=== PATIENT | female | born 1995 | race Caucasian/White ===

== ENCOUNTER → 2018-09-06 15:56 | Outpatient (CLI) | payer BC, SELFPAY ==
[2018-09-06 16:56] LABS: Alanine Aminotransferase 24 IU/L (9-52); Albumin 4.6 g/dL (3.5-5.0); Albumin Globulin Ratio 1.2 (1.0-2.8); Alkaline Phosphatase 79 U/L (38-126); Aspartate Aminotransferase 21 IU/L (14-36); BUN Creatinine Ratio 14.3 (6-22); Bilirubin Total 0.3 mg/dL (0.2-1.3); Blood Urea Nitrogen 10 mg/dL (7-17); Calcium 9.5 mg/dL (8.4-10.2); Carbon Dioxide 24 mmol/L (22-32); Chloride 102 mmol/L (98-107); Estimated Glomerular Filt Rate > 60.0 mL/min (>60); Globulin 3.9 g/dL (1.7-4.1); Glucose 83 mg/dL (70-100); HEMOLYSIS < 15 (0-50); Lipase 250 U/L (23-300); Potassium 3.9 mmol/L (3.4-5.1); Sodium 138 mmol/L (137-145); Total Protein 8.5 g/dL (6.3-8.2)
[2018-09-06 17:18] LABS: Add Manual Diff / Slide Review NO; Basophils Absolute Auto 0 /uL (0-100); Basophils Percent Auto 0.4 % (0-2); Eosinophils Absolute Auto 300 /uL (0-450); Eosinophils Percent Auto 3.3 % (2-4); Hematocrit 41.6 % (36-46); Hemoglobin 13.9 g/dL (12.0-16.0); Lymphocytes Absolute Auto 3300 /uL (1100-4500); Mean Corpuscular HGB Conc 33.4 % (30-36); Mean Corpuscular Hemoglobin 28.5 PG (26-34); Mean Corpuscular Volume 85.4 fL (80-100); Monocytes Absolute Auto 900 /uL (0-900); Monocytes Percent Auto 8.5 % (3-14); Neutrophils Absolute Auto 6000 /uL (1500-7000); Neutrophils Percent Auto 56.8 % (50-75); Platelet Count 385 X10^3/uL (150-400); Red Blood Cell Count 4.87 X10^6/uL (4.0-5.2); Red Cell Distribution Width 13.6 % (11.6-14.8); White Blood Cell Count 10.5 X10^3/uL (4.5-11.0)
== END ==
PROVIDERS: PCP Family Medicine; Visit Provider Physician Assistant
DX: K92.1 Melena (principal)
CPT/HCPCS: 36415; 80053; 83690; 85025

== ENCOUNTER → 2024-04-29 09:38 | Outpatient (CLI) | payer OTHER, SELFPAY ==
[2024-04-29 15:31] LABS: Urine Chlamydia NOT DETECTED; Urine N gonorrhoeae NOT DETECTED
== END ==
PROVIDERS: PCP Registered Nurse; Visit Provider Student in an Organized Health Care Education/Training Program
DX: Z34.01 Encounter for supervision of normal first pregnancy, first trimester (principal); Z3A.08 8 weeks gestation of pregnancy
CPT/HCPCS: 87491; 87591

== ENCOUNTER → 2024-05-27 13:56 | Outpatient (CLI) | payer OTHER, SELFPAY ==
[2024-05-27 14:58] LABS: Add Manual Diff / Slide Review NO; Basophils Absolute Auto 0 /uL (0-100); Basophils Percent Auto 0.4 % (0-2); Eosinophils Absolute Auto 200 /uL (0-450); Eosinophils Percent Auto 1.9 % (2-4); Hematocrit 38.2 % (36-46); Hemoglobin 12.7 g/dL (12.0-16.0); Lymphocytes Absolute Auto 3800 /uL (1100-4500); Lymphocytes Percent Auto 31.7 % (25-40); Mean Corpuscular HGB Conc 33.2 % (30-36); Mean Corpuscular Hemoglobin 28.1 PG (26-34); Mean Corpuscular Volume 84.6 fL (80-100); Monocytes Absolute Auto 1100 /uL (0-900); Neutrophils Absolute Auto 6700 /uL (1500-7000); Platelet Count 363 X10^3/uL (150-400); Red Blood Cell Count 4.51 X10^6/uL (4.0-5.2); Red Cell Distribution Width 15.2 % (11.6-14.8); White Blood Cell Count 11.8 X10^3/uL (4.5-11.0)
[2024-05-27 15:09] LABS: Natera Collection Specimen Collected
[2024-05-27 15:13] LABS: HEMOLYSIS < 15 (0-50); Iron 84 ug/dL (37-170)
[2024-05-27 15:24] LABS: Percent Iron Saturation 25 % (15-50); Total Iron Binding Capacity 331 ug/dL (265-497); Transferrin 298 mg/dL (206-381)
[2024-05-29 05:13] LABS: RPR Screen Non Reactive (Non Reactive)
[2024-05-29 13:39] LABS: Varicella IgG Antibody Non Reactive (Non Reactive)
[2024-05-29 15:34] LABS: Hepatitis B Surface Antigen NEGATIVE s/c (NEGATIVE); Rubella Antibody IgG 71.6 IU/mL (>15)
[2024-05-29 15:50] LABS: HIV 1 & 2 Ab/Ag 4th Gen Combo NEGATIVE (NEGATIVE); Hep C Virus Ab w/Reflex Quant NEGATIVE s/c (NEGATIVE)
[2024-06-02 08:38] LABS: B2-Glycoprotein I IgA AB < 9 (0-25); B2-Glycoprotein I IgG AB < 9 (0-20); B2-Glycoprotein I IgM AB < 9 (0-32); Cardiolipin Ab IgA < 9 APL U/mL (0-11); Cardiolipin Ab IgG < 9 GPL U/mL (0-14); Cardiolipin Ab IgM < 9 MPL U/mL (0-12); Dilute Russell Viper Venom 36.7 sec (0.0-47.0); Lupus Reflex Interpretation Comment: (.)
== END ==
PROVIDERS: PCP Registered Nurse; Referring Provider Student in an Organized Health Care Education/Training Program; Visit Provider Student in an Organized Health Care Education/Training Program
DX: Z34.01 Encounter for supervision of normal first pregnancy, first trimester (principal); Z34.00 Encounter for supervision of normal first pregnancy, unspecified trimester; Z36.0 Encounter for antenatal screening for chromosomal anomalies; Z86.2 Personal history of diseases of the blood and blood-forming organs and certain disorders involving the immune mechanism; Z86.718 Personal history of other venous thrombosis and embolism
CPT/HCPCS: 36415; 80055; 81241; 83540; 83550; 85613; 85732; 86146; 86147; 86787; 86803; 86850; 86900; 86901; 87086; 87389

== ENCOUNTER → 2024-07-22 11:02 | Outpatient (CLI) | payer OTHER, SELFPAY ==
--- NOTE | 2024-07-22 11:03 | DI.US.S_ITS ---
PROCEDURE: US OB >= 14 WEEKS FETUS INDICATIONS: 20 week anatomy scan OUTSIDE/PRIOR DATING DATA: Last menstrual period (LMP): 03/02/2024 LMP-based estimated date of delivery (ART): 12/07/2024 First dating scan (date and location): 04/29/2024 Estimated date of delivery (ART) from first dating scan: 12/09/2024 The calculations are made using the clinical ART of 12/07/2024. TECHNIQUE: Real-time scanning was performed of the fetus, with image documentation and biometric measurements. Endovaginal scanning: Not performed COMPARISON: [facility], , OB <= 14 WEEKS FETUS, 05/27/2024, 13:55. FINDINGS: General: A single living intrauterine gestation is present. Presentation: Variable Placenta: Placental position is anterior right, without previa. Amniotic fluid index: 15.5 cm, normal range is 5-24 cm. Single deepest vertical pocket is 5.0 cm. heart rate: 143 beats per minute. Maternal cervical canal: 4.4 cm long. Normal lower limit is 2.5 cm. biometrics: Biparietal diameter: 4.7 cm, 20 weeks 1 day Head circumference: 16.9 cm, 19 weeks 4 days Abdominal circumference: 15.5 cm, 20 weeks 5 days Femur length: 3.1 cm, 19 weeks 5 days Clinically estimated gestational age: 20 weeks 2 days Composite gestational age from present scan: 20 weeks 0 days Estimated weight and percentile: 335 g, 37th percentile Anatomic survey: Neuro: Ventricles are non-dilated at less than 10 mm. Cisterna magna is normal at 3-11 mm. Cerebellum is normal in size and morphology. Nuchal skin fold: Normal at less than 6 mm between 14-21 weeks gestational age. Face: Nose and lips, facial profile are normal. Spine: No evidence for spina bifida. Heart: 4-chambered heart is present, with normal ventricular outflow tracts. Diaphragm: Diaphragm is intact. Stomach: Left-sided stomach is present. Kidneys: No hydronephrosis. Normal is less than 5 mm in 2nd trimester, less than 7 mm in 3rd trimester. Cord: 3-vessel cord has orthotopic insertion. Bladder: Normal in size. Extremities: All 4 extremities identified. IMPRESSION: 1. Single live intrauterine with appropriate growth. 2. anatomic survey is within normal limits. Approved by: Freedom Anguiano M.D. on 07/22/2024 at 15:49
== END ==
PROVIDERS: PCP Registered Nurse; Referring Provider Student in an Organized Health Care Education/Training Program; Visit Provider Student in an Organized Health Care Education/Training Program
DX: Z34.02 Encounter for supervision of normal first pregnancy, second trimester (principal); Z3A.20 20 weeks gestation of pregnancy
CPT/HCPCS: 76811

== ENCOUNTER → 2024-09-03 11:40 | Outpatient (CLI) | payer OTHER, SELFPAY ==
[2024-09-03 13:38] LABS: Hematocrit 35.4 % (36-46); Hemoglobin 11.9 g/dL (12.0-16.0)
[2024-09-03 14:01] LABS: GTT (PREG) 1 Hour PP 50gm Dose 133 mg/dL (76-139)
== END ==
LOC: LAB 11:41
PROVIDERS: PCP Registered Nurse; Referring Provider Student in an Organized Health Care Education/Training Program; Visit Provider Student in an Organized Health Care Education/Training Program
DX: O26.899 Other specified pregnancy related conditions, unspecified trimester (principal); Z13.1 Encounter for screening for diabetes mellitus; Z67.91 Unspecified blood type, Rh negative; Z13.0 Encounter for screening for diseases of the blood and blood-forming organs and certain disorders involving the immune mechanism
CPT/HCPCS: 36415; 82950; 85014; 85018; 86850

== ENCOUNTER → 2024-10-07 11:31 | Outpatient (CLI) | payer OTHER, SELFPAY ==
--- NOTE | 2024-10-07 11:32 | DI.US.S_ITS ---
PROCEDURE: US OB LIMITED INDICATIONS: MATERNAL CHRON'S - EVALUATE GROWTH OUTSIDE/PRIOR DATING DATA: Last menstrual period (LMP): 03/02/2024 LMP-based estimated date of delivery (ART): 12/07/2024 First dating scan (date and location): 04/29/2024 Estimated date of delivery (ART) from first dating scan: 12/09/2024 The calculations are made using the clinical ART of 12/07/2024. TECHNIQUE: Real-time scanning was performed of the fetus, with image documentation and biometric measurements. Endovaginal scanning: Not performed COMPARISON: [facility], OB >= 14 WEEKS FETUS, 07/22/2024, 11:19. FINDINGS: General: A single living intrauterine gestation is present. Presentation: Vertex Placenta: Placental position is anterior, without previa. Amniotic fluid index: 18.0 cm, normal range is 5-24 cm. Single deepest vertical pocket is 5.0 cm. heart rate: 132 beats per minute. Maternal cervical canal: 4.1 cm long. Normal lower limit is 2.5 cm. biometrics: Biparietal diameter: 8.1 cm, 32 weeks 3 days Head circumference: 28.5 cm, 31 weeks 2 days Abdominal circumference: 27.9 cm, 32 weeks 0 days Femur length: 5.9 cm, 30 weeks 5 days Clinically estimated gestational age: 31 weeks 2 days Composite gestational age from present scan: 31 weeks 4 days Estimated weight and percentile: 1792 g, 47th percentile IMPRESSION: 1. Single live intrauterine with appropriate interval growth. 2. Estimated weight is at the 47th percentile for gestational age. Approved by: Freedom Anguiano M.D. on 10/07/2024 at 15:10
== END ==
LOC: US 11:31
PROVIDERS: PCP Registered Nurse; Referring Provider Student in an Organized Health Care Education/Training Program; Visit Provider Student in an Organized Health Care Education/Training Program
DX: O99.613 Diseases of the digestive system complicating pregnancy, third trimester (principal); K50.90 Crohn's disease, unspecified, without complications; Z3A.31 31 weeks gestation of pregnancy
CPT/HCPCS: 76815

== ENCOUNTER → 2024-11-07 11:04 | Outpatient (CLI) | payer OTHER, SELFPAY ==
[2024-11-07 11:52] LABS: Influenza A - CEPHEID Flu A NEGATIVE (NEGATIVE); Influenza B - CEPHEID Flu B NEGATIVE (NEGATIVE); Respiratory Syncytial Virus Negative (Negative)
[2024-11-07 11:53] LABS: COVID-19 CEPHEID 4-PLEX PCR Negative (Negative)
== END ==
PROVIDERS: PCP Registered Nurse; Visit Provider Nurse Practitioner Family
DX: J02.9 Acute pharyngitis, unspecified (principal); R05.1 Acute cough
CPT/HCPCS: 0241U; 87070

== ENCOUNTER → 2024-11-11 14:21 | Outpatient (CLI) | payer OTHER, SELFPAY ==
[2024-11-12 12:50] LABS: Strep Grp B PCR POS for Grp B Strep
== END ==
LOC: LAB 14:23
PROVIDERS: PCP Registered Nurse; Visit Provider Student in an Organized Health Care Education/Training Program
DX: Z36.85 Encounter for antenatal screening for Streptococcus B (principal)
CPT/HCPCS: 87653

== ENCOUNTER 2024-11-29 12:03 | Inpatient (IN) | payer OTHER, SELFPAY ==
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
[2024-11-29 13:36] LABS: Add Manual Diff / Slide Review NO; Basophils Absolute Auto 100 /uL (0-100); Basophils Percent Auto 0.4 % (0-2); Eosinophils Absolute Auto 0 /uL (0-450); Eosinophils Percent Auto 0.1 % (2-4); Hematocrit 43.7 % (36-46); Hemoglobin 14.6 g/dL (12.0-16.0); Lymphocytes Absolute Auto 1900 /uL (1100-4500); Lymphocytes Percent Auto 11.1 % (25-40); Mean Corpuscular HGB Conc 33.3 % (30-36); Mean Corpuscular Hemoglobin 29.4 PG (26-34); Mean Corpuscular Volume 88.1 fL (80-100); Monocytes Absolute Auto 800 /uL (0-900); Neutrophils Absolute Auto 13900 /uL (1500-7000); Neutrophils Percent Auto 83.4 % (50-75); Platelet Count 261 X10^3/uL (150-400); Red Blood Cell Count 4.97 X10^6/uL (4.0-5.2); Red Cell Distribution Width 14.8 % (11.6-14.8); White Blood Cell Count 16.7 X10^3/uL (4.5-11.0)
[2024-11-29 13:46] LABS: Alanine Aminotransferase 23 IU/L (<35); Albumin 3.9 g/dL (3.5-5.0); Albumin Globulin Ratio 1.1 (1.0-2.8); Alkaline Phosphatase 294 U/L (38-126); Aspartate Aminotransferase 29 IU/L (14-36); BUN Creatinine Ratio 18.9 (6-22); Bilirubin Total 0.5 mg/dL (0.2-1.3); Blood Urea Nitrogen 10 mg/dL (7-17); Calcium 9.3 mg/dL (8.4-10.2); Carbon Dioxide 19 mmol/L (22-32); Chloride 107 mmol/L (98-107); Estimated Glomerular Filt Rate > 60 mL/min (>60); Globulin 3.5 g/dL (1.7-4.1); Glucose 92 mg/dL (70-99); HEMOLYSIS < 15 (0-50); Potassium 3.9 mmol/L (3.4-5.1); Sodium 136 mmol/L (137-145); Total Protein 7.4 g/dL (6.3-8.2)
[2024-11-29 13:57] VITALS: BP 181/98; PULSE 81
[2024-11-29] MEDS: LABETALOL 100 MG TABLET 200 MG PO (13:57)
[2024-11-29] MEDS: LACTATED RINGERS 1,000 ML 100 ML IV (14:01)
[2024-11-29] MEDS: AMPICILLIN 2,000 MG in SODIUM CHLORIDE 0.9% 100 ML 200 MG IV (14:05)
[2024-11-29 14:48] VITALS: BP 184/103; PULSE 94
[2024-11-29 14:52] VITALS: BP 184/103; PULSE 94
[2024-11-29] MEDS: LABETALOL 20 MG/4 ML SYRINGE IV (14:52)
[2024-11-29 15:53] LABS: Protein (Total) Urine Random 42 mg/dL (0-12); Protein Creatinine Ratio Urine 0.26 GRAM/24H
--- NOTE | 2024-11-29 18:10 | PM.OBPRVD ---
Labor & Delivery Delivery date: 11/29/24 Delivery Time: 17:23 Intrapartal Events: Acceleration and Deceleration Delivery augmentation: rupture of membranes Delivery monitor: external FHT and external uterine Route of delivery: L&D Laceration Description: Periurethral - 2nd Degree and Perineal - 2nd Degree Delivery repair: vicryl (3-0) Estimated blood loss (mL): 200 Quantitative Blood Loss: 347 Anesthesia Type: Local and Other (nitrous oxide) Narrative: Patient fully dilated at 1559 and began pushing at 1600. Spontaneous vaginal delivery of a viable female in the JOSE A position occurred at 1723. The was suctioned and stimulated at the perineum, and gave appropriate cry with movement of all extremities. Delayed cord clamping was observed for 60 seconds. The cord was clamped and cut, and the handed to mother for skin to skin. Cord blood and segment were obtained. The placenta was delivered without difficulty using gentle cord traction and found to be intact with a 3-vessel cord. After fundal massage the uterus was firm and bleeding stopped. The vagina and cervix were examined for lacerations. A second-degree perineal second-degree periurethral laceration where noted and repaired with 3-0 Vicryl suture in the usual fashion. Patient stable with rooming in, bonding skin to skin and attempting to breastfeed. [place] Baby 1: Infant gender: Female Presentation: vertex Position: Left Occiput Anterior Placenta delivery description: Spontaneous Cord Vessel Description: 3 Vessels score (1 min): 8 score (5 min): 9 weight: 6 lb 14.937 oz Plan for aftercare: Routine care
[2024-11-29] MEDS: LIDOCAINE 1% 20 ML INJ (18:55)
[2024-11-29] MEDS: OXYTOCIN 10 UNIT/ML VIAL IM (18:55)
[2024-11-29] MEDS: ACETAMINOPHEN 325 MG TABLET 650 MG PO (20:01)
[2024-11-29] MEDS: IBUPROFEN 600 MG TABLET PO (20:01)
[2024-11-29] MEDS: DERMOPLAST SPRAY 20% 60 ML 1 SPRAY TOP (20:02)
[2024-11-29] MEDS: WITCH HAZEL/GLYCERIN PADS 1 EACH TOP (20:02)
[2024-11-30] MEDS: ACETAMINOPHEN 325 MG TABLET 650 MG PO ×2 (01:37→11:04)
[2024-11-30] MEDS: IBUPROFEN 600 MG TABLET PO (01:38)
[2024-11-30 11:04] VITALS: BP 143/99; PULSE 90
[2024-11-30] MEDS: LABETALOL 100 MG TABLET 200 MG PO ×2 (11:04→22:24)
--- NOTE | 2024-11-30 11:47 | PM.OBPN.1 ---
Subjective - OB Subjective Patient comments: no complaints, pain well controlled and tolerating diet baby status: doing well and nursing well feeding status: exclusively breast feeding Date Patient Seen: 11/30/24 Time Patient Seen: 11:47 Exam Vital Signs (past 8 hours): - 11/30/24 11:04 Pulse Rate 90 Blood Pressure 143/99 H Narrative Exam Narrative: General: Well-appearing, well-nourished, no distress HEENT: Moist mucous membranes, no pallor CV: Regular rate and rhythm, no murmur auscultated Resp: CTAB, comfortable work of breathing Abdomen: Soft, bowel sounds present, fundus firm below umbilicus with appropriate tenderness Extremities: No edema, no calf tenderness or evidence of DVT Objective Labs 11/29/24 13:10 11/29/24 13:10 Labs: Laboratory Results - last 24 hr 11/29/24 11/29/24 11/30/24 13:10 15:05 08:09 WBC 16.7 H RBC 4.97 Hgb 14.6 Hct 43.7 MCV 88.1 MCH 29.4 MCHC 33.3 RDW 14.8 Plt Count 261 Neut % (Auto) 83.4 H Lymph % (Auto) 11.1 L [place] % (Auto) 5.0 Eos % (Auto) 0.1 L Baso % (Auto) 0.4 Neut # (Auto) 02119 H Lymph # (Auto) 1900 [place] # (Auto) 800 Eos # (Auto) 0 Baso # (Auto) 100 Sodium 136 L Potassium 3.9 Chloride 107 Carbon Dioxide 19 L BUN 10 Creatinine 0.53 Estimated GFR > 60 BUN/Creatinine Ratio 18.9 Glucose 92 Calcium 9.3 Total Bilirubin 0.5 AST 29 ALT 23 Alkaline Phosphatase 294 H Total Protein 7.4 Albumin 3.9 Globulin 3.5 Albumin/Globulin Ratio 1.1 U Random Total Protein 42 H Urine Creatinine 156.60 Protein/Creatinin Ratio 0.26 Blood Type A Negative Antibody Screen Negative Maternal Bleed Negative Assessment & Plan Plan day: 1 plan OB: routine care Comments: PPD #1 s/p Clinically stable, recovering well Moderately elevated BP + MOORE, PIH labs wnl, started labetalol 200mg PO BID Pain management as needed support s/p consult Encourage ambulation, flatus/BM prior to discharge Bleeding appropriate for course, monitor Likely discharge home PPD #2 Time-Based Coding :: 15 minutes spent with patient and on the chart (including review of chart, obtaining history, exam, reviewing outside data, placing orders, documenting exam and treatment plan, and counseling patient) on 11/30/2024.
[2024-11-30 22:24] VITALS: BP 120/86; PULSE 79
--- NOTE | 2024-12-01 08:06 | P.DS_ITS ---
Discharge Providers Provider Date of admission: 11/29/24 12:03 Discharge Date: 12/01/24 Primary care physician: VLADIMIR Jaime Consults: 11/29/24 18:56 Consult to [employer] Routine Comment: Discharge provider: Umu Zepeda DO Summary Hospital Course Date Patient Seen: 12/01/24 Time Patient Seen: 07:45 Diagnoses: Term gestation at 38+6wks Gestational hypertension, diagnosed intrapartum/ Group B strep carrier Rh-negative status History of Crohn's disease Hospital Course: 28yo [id number] admitted at 38+6wks in active labor. She progressed to a spontaneous vaginal delivery. Her delivery was uncomplicated, and productive of a viable female infant. Her course was unremarkable, other than mild range blood pressures noted. She had normal preeclampsia lab work done, and was started on labetalol 200 mg twice a day. On day #2, she was ambulating, tolerating regular diet, voiding spontaneously with minimal lochia. Her pain was well controlled with oral medications, thus she was discharged to home on day #2. Peripartum Data Delivery Method: Natural Vaginal Laceration Description: Perineal - 2nd Degree Procedures: External monitoring Nitrous oxide analgesia Spontaneous vaginal delivery Obstetrical laceration repair complications: none [place] 1: Gender: Female Disposition of : home Discharge Diagnosis (1) Normal spontaneous vaginal delivery: Status: Acute (2) Single live : Status: Acute (3) Gestational hypertension: Status: Acute (4) Group B streptococcal carriage complicating : Status: Acute (5) Rh negative status during : Status: Acute (6) Maternal Crohn's disease affecting : Status: Acute (7) 38 weeks gestation of : Status: Acute Status at Discharge Cognitive/behavioral status at discharge: oriented Functional status at discharge: independent ambulation Overall status at discharge: patient is progressing back to baseline Time Spent with Patient Time attestation: Total time spent providing and/or coordinating discharge services: Time spent: Less than 30 minutes Objective Labs 11/29/24 13:10 11/29/24 13:10 Labs: Laboratory Results - last 24 hr 11/30/24 08:09 Maternal Bleed Negative Exam Vital Signs (past 8 hours): vitals reviewed in OBIX, severe range blood pressures during labor, mild range blood pressures Const General: cooperative, healthy appearing, comfortable and No acute distress Resp Effort & Inspection: normal respiratory effort GI Inspection: normal to inspection Other: fundus firm and nontender at U-2 Skin General: no rashes or lesions noted Neuro General: patient alert and patient awake Extrem General: normal to inspection, no pedal edema and no calf tenderness Psych Mood: congruent mood Affect: normal affect Discharge Plan Discharge Plan Patient Disposition: Home Provider Discharge Comment: Take ibuprofen 600 mg every 6 hours and acetaminophen 650 mg every 6 as needed for pain. Continue taking labetalol 200 mg twice a day until told to stop by your provider. Avoid placing anything in the vagina for 6 weeks. Discharge orders & Medications Prescriptions: New labetalol 100 mg Tablet 200 mg PO BID Qty: 60 1RF Continued vit-ferrous sulfat-FA 27 mg iron- 0.8 mg tablet PO Entyvio 300 mg recon soln 300 mg IV Q8W Rx Instructions: administer over 30 mins Follow up/Referrals: Umu Zepeda DO [Physician, [facility] [facility]] - 12/19/24 10:15 am Referral Note: Walk in to the [facility] clinic on 12/04 or 12/05 for a blood pressure check. Follow-up at 3 weeks and 6 weeks as scheduled. 6 weeks follow up on 01/13/25 @ 1115am Diet/Activity/Treatments Diet: Diet as Tolerated Activity: As tolerated. Skin/Wound/Dressing Care Report to your healthcare provider any signs of infection, such as:: chills, fever, increased pain and unusual drainage Visit Report/Discharge Packet Instructions: DI for Labor and Delivery, Vaginal , DI for Depression, DI for Pre-eclampsia Stand Alone Forms: Discharge: Care, Patient Portal/API, Stroke Signs & Symptoms Discharge Data Primary Care Provider: Lilia Sierra
[2024-12-01 08:41] VITALS: BP 119/75; PULSE 73
[2024-12-01] MEDS: PRENATAL VIT,CALC/IRON/FOLIC 1 TABLET 1 TAB PO (08:41)
[2024-12-01] MEDS: LABETALOL 100 MG TABLET 200 MG PO (08:41)
[2024-12-01] MEDS: WITCH HAZEL/GLYCERIN PADS 1 EACH TOP (08:45)
[2024-12-01] MEDS: LANOLIN OINT 7 GM 1 APPLIC TOP (08:46)
[2024-12-01] MEDS: RHO(D) IMMUNE GLOBULIN 1,500 UNIT SYRINGE 1500 UNIT IM (15:37)
== END 2024-12-01 15:50 | disposition home or self-care (01) | DRG 806 ==
PROVIDERS: Admitting Provider Family Medicine; PCP Registered Nurse; Referring Provider Student in an Organized Health Care Education/Training Program; Visit Provider Family Medicine
DX: O99.62 Diseases of the digestive system complicating childbirth (principal); K50.90 Crohn's disease, unspecified, without complications; Z37.0 Single live birth; Z3A.38 38 weeks gestation of pregnancy; O99.824 Streptococcus B carrier state complicating childbirth; Z86.718 Personal history of other venous thrombosis and embolism; O76 Abnormality in fetal heart rate and rhythm complicating labor and delivery; O70.1 Second degree perineal laceration during delivery; O13.4 Gestational [pregnancy-induced] hypertension without significant proteinuria, complicating childbirth
CPT/HCPCS: 36415; 59025; 59050; 80053; 82570; 84156; 85025; 85461; 86850; 86900; 86901; G0378; G0379; J0290; J2590; J2790